=== PATIENT | male | born 1985 | race Two or more races ===

== ENCOUNTER 2020-09-14 15:12 | Inpatient (IN) | payer OTHER ==
[2020-09-14 17:12] VITALS: BMI 28.3
[2020-09-14] MEDS ORDERED: chlordiazePOXIDE HCL 25 MG CAPSULE PO PRN (17:54)
[2020-09-14] MEDS ORDERED: MAG HYDROX/AL HYDROX/SIMETH 30 ML UNIT-DOSE CUP PO PRN (17:54)
[2020-09-14] MEDS ORDERED: ONDANSETRON *ODT* 4 MG TABLET SL PRN (17:54)
[2020-09-14] MEDS ORDERED: MENTHOL/PHENOL 1 EACH UD MM PRN (17:54)
[2020-09-14] MEDS ORDERED: IBUPROFEN 400 MG TABLET (FP) PO PRN (17:54)
[2020-09-14] MEDS ORDERED: MAGNESIUM CITRATE 300 ML BOTTLE PO PRN (17:54)
[2020-09-14] MEDS ORDERED: MAGNESIUM HYDROX 2400MG/30ML ORAL SUSPENSION 30 ML CUP PO PRN (17:54)
[2020-09-14] MEDS ORDERED: ACETAMINOPHEN 325 MG TABLET (FP) PO PRN ×2 (17:54)
[2020-09-14] MEDS ORDERED: BISMUTH SUBSALICYLATE 524 MG/30 ML UD PO PRN (17:54)
[2020-09-14] MEDS ORDERED: NICOTINE POLACRILEX 2 MG GUM BUC PRN (17:54)
[2020-09-14] MEDS ORDERED: METHOCARBAMOL 500 MG TABLET PO PRN (17:54)
[2020-09-14] MEDS: chlordiazePOXIDE HCL 25 MG CAPSULE PO SCH (22:10)
[2020-09-14] MEDS: THIAMINE HCL 100 MG TABLET (FP) PO SCH (22:11)
[2020-09-14] MEDS: MELATONIN 5 MG TABLETS PO SCH (22:11)
[2020-09-15] MEDS: chlordiazePOXIDE HCL 25 MG CAPSULE PO SCH ×4 (06:43→22:48)
[2020-09-15] MEDS: PRENATAL VITAMINS W/ FOLIC ACID TABLET (FP) PO SCH (10:32)
[2020-09-15] MEDS: NICOTINE 14 MG/24 HOURS TOPICAL PATCH TD SCH (10:32)
[2020-09-15 10:41] LABS: POTASSIUM 3.5 mmol/L (3.5-5.1)
[2020-09-15 10:43] LABS: CALCIUM 8.7 mg/dL (8.5-10.1)
[2020-09-15 10:45] LABS: ALBUMIN 4.2 g/dl (3.4-5.0); BLOOD UREA NITROGEN 11.8 mg/dL (7-18); HEMATOCRIT 38.8 % (35.4-49); HEMOGLOBIN 13.8 GM/dL (11.7-16.9); MCH 36.5 pg (25.7-33.7); MCHC 35.5 g/dl (32.0-35.9); MEAN CELL VOLUME 102.6 fl (80-96); MEAN PLT VOLUME 7.7 fl (7.5-11.1); PLATELET COUNT 211 K/MM3 (134-434); RBC 3.78 M/mm3 (4.00-5.60); RDW 13.7 % (11.9-15.9); WHITE BLOOD COUNT 5.5 K/mm3 (4.0-10.0)
[2020-09-15 10:47] LABS: BILIRUBIN,TOTAL 0.5 mg/dL (0.2-1); CREATININE 0.7 mg/dL (0.55-1.3)
[2020-09-15 10:49] LABS: TOT PROT 7.3 g/dl (6.4-8.2)
[2020-09-15] MEDS ORDERED: amLODIPine BESYLATE 5 MG TABLET (FP) PO PRN (16:52)
[2020-09-15] MEDS ORDERED: amLODIPine BESYLATE 5 MG TABLET (FP) PO ONE (16:52)
[2020-09-15] MEDS: THIAMINE HCL 100 MG TABLET (FP) PO SCH (22:48)
[2020-09-15] MEDS: MELATONIN 5 MG TABLETS PO SCH (22:48)
[2020-09-16] MEDS: chlordiazePOXIDE HCL 25 MG CAPSULE PO SCH ×4 (05:41→22:29)
[2020-09-16] MEDS: PRENATAL VITAMINS W/ FOLIC ACID TABLET (FP) PO SCH (10:18)
[2020-09-16] MEDS: NICOTINE 14 MG/24 HOURS TOPICAL PATCH TD SCH (10:19)
[2020-09-16] MEDS: ARTIFICIAL TEARS (POLYVINYL ALCOHOL) OPTH DROPS OU SCH ×3 (13:31→22:30)
[2020-09-16] MEDS: THIAMINE HCL 100 MG TABLET (FP) PO SCH (22:28)
[2020-09-16] MEDS: MELATONIN 5 MG TABLETS PO SCH (22:28)
[2020-09-17] MEDS ORDERED: chlordiazePOXIDE HCL 10 MG CAPSULE PO PRN
[2020-09-17] MEDS: chlordiazePOXIDE HCL 10 MG CAPSULE PO SCH ×4 (05:41→22:16)
[2020-09-17] MEDS: PRENATAL VITAMINS W/ FOLIC ACID TABLET (FP) PO SCH (10:16)
[2020-09-17] MEDS: NICOTINE 14 MG/24 HOURS TOPICAL PATCH TD SCH (10:18)
[2020-09-17] MEDS: ARTIFICIAL TEARS (POLYVINYL ALCOHOL) OPTH DROPS OU SCH ×4 (10:19→22:17)
[2020-09-17] MEDS: THIAMINE HCL 100 MG TABLET (FP) PO SCH (22:16)
[2020-09-17] MEDS: MELATONIN 5 MG TABLETS PO SCH (22:17)
[2020-09-18] MEDS: chlordiazePOXIDE HCL 10 MG CAPSULE PO SCH ×2 (06:34→17:27)
[2020-09-18] MEDS: NICOTINE 14 MG/24 HOURS TOPICAL PATCH TD SCH (10:06)
[2020-09-18] MEDS: PRENATAL VITAMINS W/ FOLIC ACID TABLET (FP) PO SCH (10:06)
[2020-09-18] MEDS: ARTIFICIAL TEARS (POLYVINYL ALCOHOL) OPTH DROPS OU SCH ×4 (10:07→22:14)
[2020-09-18] MEDS: THIAMINE HCL 100 MG TABLET (FP) PO SCH (22:12)
[2020-09-18] MEDS: MELATONIN 5 MG TABLETS PO SCH (22:13)
[2020-09-19] MEDS ORDERED: chlordiazePOXIDE HCL 10 MG CAPSULE PO ONE (05:00)
[2020-09-19 08:52] VITALS: BP 124/89; PULSE 76; TEMP 96.9
[2020-09-19] MEDS: PRENATAL VITAMINS W/ FOLIC ACID TABLET (FP) PO SCH (09:44)
[2020-09-19] MEDS: ARTIFICIAL TEARS (POLYVINYL ALCOHOL) OPTH DROPS OU SCH (09:45)
[2020-09-19] MEDS: NICOTINE 14 MG/24 HOURS TOPICAL PATCH TD SCH (09:45)
== END 2020-09-19 11:25 | disposition other institution (70) | DRG 775 ==
LOC: YASAS 15:12 → Y3N 18:22
PROVIDERS: ADMIT Allergy & Immunology; ATTEND Allergy & Immunology
PROC: HZ2ZZZZ Detoxification Services for Substance Abuse Treatment (ICD-10-PCS; principal; 2020-09-14)
DX: F10.230 Alcohol dependence with withdrawal, uncomplicated (principal); F17.210 Nicotine dependence, cigarettes, uncomplicated; R03.0 Elevated blood-pressure reading, without diagnosis of hypertension; H57.9 Unspecified disorder of eye and adnexa; Z91.013 Allergy to seafood
CPT/HCPCS: 36415; 80053; 85027; 86780; 93005; 93010; C9803; U0003

== ENCOUNTER 2022-09-11 13:50 | Inpatient (IN) | payer OTHER ==
[2022-09-11 16:05] VITALS: BMI 26.9
[2022-09-11] MEDS ORDERED: IBUPROFEN 600 MG TABLET (FP) PO PRN (18:08)
[2022-09-11] MEDS ORDERED: ONDANSETRON *ODT* 4 MG TABLET SL PRN (18:08)
[2022-09-11] MEDS ORDERED: IBUPROFEN 400 MG TABLET (FP) PO PRN (18:08)
[2022-09-11] MEDS ORDERED: NALOXONE HCL (KLOXXADO) 8 MG SPRAY NS PRN (18:08)
[2022-09-11] MEDS ORDERED: MAGNESIUM HYDROX 2400MG/30ML ORAL SUSPENSION 30 ML CUP PO PRN (18:08)
[2022-09-11] MEDS ORDERED: BENZOCAINE/MENTHOL (CHLORASEPTIC ) LOZENGE MM PRN (18:08)
[2022-09-11] MEDS ORDERED: DICYCLOMINE HCL 10 MG CAPSULE PO PRN (18:08)
[2022-09-11] MEDS ORDERED: POLYETHYLENE GLYCOL (HEALTHYLAX) 3350 17 GM PACKET PO PRN (18:08)
[2022-09-11] MEDS ORDERED: MAG HYDROX/AL HYDROX/SIMETH 30 ML UNIT-DOSE CUP PO PRN (18:08)
[2022-09-11] MEDS ORDERED: ACETAMINOPHEN 325 MG TABLET (FP) PO PRN ×2 (18:08)
[2022-09-11] MEDS ORDERED: chlordiazePOXIDE HCL 25 MG CAPSULE PO ONE (18:25)
[2022-09-11] MEDS ORDERED: chlordiazePOXIDE HCL 25 MG CAPSULE ONE (18:34)
[2022-09-11] MEDS: NICOTINE 21 MG/24 HOURS TOPICAL PATCH TD SCH (19:19)
[2022-09-11] MEDS: PRENATAL VITAMINS W/ FOLIC ACID TABLET (FP) PO SCH (19:19)
[2022-09-11] MEDS: THIAMINE HCL 100 MG TABLET (FP) PO SCH (22:09)
[2022-09-11] MEDS: chlordiazePOXIDE HCL 25 MG CAPSULE PO SCH (22:09)
[2022-09-11] MEDS: MELATONIN 5 MG TABLETS PO SCH (22:09)
[2022-09-12] MEDS: chlordiazePOXIDE HCL 25 MG CAPSULE PO SCH ×4 (05:14→22:07)
[2022-09-12] MEDS: NICOTINE 21 MG/24 HOURS TOPICAL PATCH TD SCH (10:13)
[2022-09-12] MEDS: PRENATAL VITAMINS W/ FOLIC ACID TABLET (FP) PO SCH (10:13)
[2022-09-12] MEDS: LOPERAMIDE HCL 2 MG CAPSULE PO PRN (19:21)
[2022-09-12] MEDS: THIAMINE HCL 100 MG TABLET (FP) PO SCH (22:07)
[2022-09-12] MEDS: MELATONIN 5 MG TABLETS PO SCH (22:07)
[2022-09-12] MEDS: METHOCARBAMOL 500 MG TABLET PO PRN (22:07)
[2022-09-13] MEDS: chlordiazePOXIDE HCL 25 MG CAPSULE PO SCH ×4 (05:49→22:20)
[2022-09-13] MEDS: PRENATAL VITAMINS W/ FOLIC ACID TABLET (FP) PO SCH (10:43)
[2022-09-13] MEDS: NICOTINE 21 MG/24 HOURS TOPICAL PATCH TD SCH (10:43)
[2022-09-13] MEDS: METHOCARBAMOL 500 MG TABLET PO PRN ×2 (10:44→22:20)
[2022-09-13 11:30] LABS: HEMATOCRIT 36.5 % (35.4-49); HEMOGLOBIN 12.6 GM/dL (11.7-16.9); MCH 36.5 pg (25.7-33.7); MCHC 34.4 g/dl (32.0-35.9); MEAN PLT VOLUME 9.5 fl (7.5-11.1); PLATELET COUNT 71 10^3/uL (134-434); RBC 3.44 M/mm3 (4.00-5.60); RDW 14.6 % (11.9-15.9); WHITE BLOOD COUNT 3.7 K/mm3 (4.0-10.0)
[2022-09-13 12:00] LABS: ALBUMIN 3.3 g/dl (3.4-5.0); BLOOD UREA NITROGEN 4.5 mg/dL (7-18)
[2022-09-13 12:03] LABS: CREATININE 0.6 mg/dL (0.55-1.3)
[2022-09-13 12:04] LABS: BILIRUBIN,TOTAL 0.5 mg/dL (0.2-1); TOT PROT 6.4 g/dl (6.4-8.2)
[2022-09-13] MEDS ORDERED: POTASSIUM CHLORIDE ORAL LIQUID 20 MEQ/15 ML PO ONE ×3 (14:30→21:30)
[2022-09-13] MEDS: MELATONIN 5 MG TABLETS PO SCH (22:17)
[2022-09-13] MEDS: THIAMINE HCL 100 MG TABLET (FP) PO SCH (22:20)
[2022-09-14] MEDS ORDERED: chlordiazePOXIDE HCL 10 MG CAPSULE PO PRN
[2022-09-14] MEDS: chlordiazePOXIDE HCL 10 MG CAPSULE PO SCH ×4 (06:16→22:02)
[2022-09-14] MEDS: NICOTINE 21 MG/24 HOURS TOPICAL PATCH TD SCH (10:32)
[2022-09-14] MEDS: PRENATAL VITAMINS W/ FOLIC ACID TABLET (FP) PO SCH (10:32)
[2022-09-14] MEDS: BISMUTH SUBSALICYLATE 524 MG/30 ML PO PRN ×2 (10:39→22:04)
[2022-09-14] MEDS: MELATONIN 5 MG TABLETS PO SCH (22:02)
[2022-09-14] MEDS: THIAMINE HCL 100 MG TABLET (FP) PO SCH (22:02)
[2022-09-15] MEDS: chlordiazePOXIDE HCL 10 MG CAPSULE PO SCH ×2 (05:25→17:31)
[2022-09-15] MEDS: PRENATAL VITAMINS W/ FOLIC ACID TABLET (FP) PO SCH (10:06)
[2022-09-15] MEDS: NICOTINE 21 MG/24 HOURS TOPICAL PATCH TD SCH (10:06)
[2022-09-15] MEDS: LOPERAMIDE HCL 2 MG CAPSULE PO PRN (10:08)
[2022-09-15 12:07] LABS: HEMATOCRIT 37.4 % (35.4-49); HEMOGLOBIN 12.7 GM/dL (11.7-16.9); MCH 36.2 pg (25.7-33.7); MCHC 33.9 g/dl (32.0-35.9); MEAN CELL VOLUME 106.7 fl (80-96); PLATELET COUNT 110 10^3/uL (134-434); RBC 3.51 M/mm3 (4.00-5.60)
[2022-09-15] MEDS: NICOTINE 10 MG CARTRIDGE (INHALER) IH PRN ×2 (14:16→21:56)
[2022-09-15] MEDS: METHOCARBAMOL 500 MG TABLET PO PRN (17:33)
[2022-09-15] MEDS: BISMUTH SUBSALICYLATE 524 MG/30 ML PO PRN ×2 (17:33→22:05)
[2022-09-15] MEDS: MELATONIN 5 MG TABLETS PO SCH (22:00)
[2022-09-15] MEDS: THIAMINE HCL 100 MG TABLET (FP) PO SCH (22:00)
[2022-09-16] MEDS ORDERED: chlordiazePOXIDE HCL 10 MG CAPSULE PO ONE (06:00)
[2022-09-16 09:03] VITALS: TEMP 97.3
[2022-09-16] MEDS: PRENATAL VITAMINS W/ FOLIC ACID TABLET (FP) PO SCH (10:14)
[2022-09-16] MEDS: NICOTINE 21 MG/24 HOURS TOPICAL PATCH TD SCH (10:14)
[2022-09-16] MEDS: LOPERAMIDE HCL 2 MG CAPSULE PO PRN (10:58)
[2022-09-16 12:34] VITALS: BP 125/84; PULSE 85; RESP 19
== END 2022-09-16 12:53 | disposition other institution (70) | DRG 775 ==
LOC: YASAS 13:50 → Y3N 18:54
PROVIDERS: ADMIT Allergy & Immunology; ATTEND Surgery
PROC: HZ2ZZZZ Detoxification Services for Substance Abuse Treatment (ICD-10-PCS; principal; 2022-09-11)
DX: F10.230 Alcohol dependence with withdrawal, uncomplicated (principal); F17.210 Nicotine dependence, cigarettes, uncomplicated; F19.24 Other psychoactive substance dependence with psychoactive substance-induced mood disorder; F41.8 Other specified anxiety disorders; F32.A Depression, unspecified; D69.6 Thrombocytopenia, unspecified; D52.0 Dietary folate deficiency anemia; E87.6 Hypokalemia; R74.01 Elevation of levels of liver transaminase levels; R74.8 Abnormal levels of other serum enzymes
CPT/HCPCS: 36415; 80053; 84132; 84450; 84460; 85027; 86780; 87811; C9803-CS; U0003; U0005

== ENCOUNTER 2022-09-16 12:57 | Inpatient (IN) | payer OTHER ==
[2022-09-16] MEDS ORDERED: guaiFENesin 200 MG/10 ML 10 ML UNIT-DOSE CUPS PO PRN (14:28)
[2022-09-16] MEDS ORDERED: NICOTINE POLACRILEX 2 MG GUM BUC PRN (14:28)
[2022-09-16] MEDS ORDERED: ACETAMINOPHEN 325 MG TABLET (FP) PO PRN (14:28)
[2022-09-16] MEDS ORDERED: BENZOCAINE/MENTHOL (CHLORASEPTIC ) LOZENGE MM PRN (14:28)
[2022-09-16] MEDS ORDERED: LOPERAMIDE HCL 2 MG CAPSULE PO PRN (14:28)
[2022-09-16] MEDS ORDERED: MAG HYDROX/AL HYDROX/SIMETH 30 ML UNIT-DOSE CUP PO PRN (14:28)
[2022-09-16] MEDS ORDERED: NICOTINE 7 MG/24 HOURS TOPICAL PATCH TD PRN (14:28)
[2022-09-16] MEDS: NICOTINE 10 MG CARTRIDGE (INHALER) IH PRN ×2 (17:23→21:45)
[2022-09-16] MEDS: THIAMINE HCL 100 MG TABLET (FP) PO SCH (21:25)
[2022-09-16] MEDS: MELATONIN 5 MG TABLETS PO SCH (21:26)
[2022-09-17] MEDS: PRENATAL VITAMINS W/ FOLIC ACID TABLET (FP) PO SCH (09:51)
[2022-09-17] MEDS: hydrOXYzine PAMOATE 25 MG CAPSULE (FP) PO PRN (09:54)
[2022-09-17] MEDS: NICOTINE 10 MG CARTRIDGE (INHALER) IH PRN ×3 (10:17→19:48)
[2022-09-17 13:32] LABS: HIV INTERPRETATION NEGATIVE (NEGATIVE)
[2022-09-17] MEDS: THIAMINE HCL 100 MG TABLET (FP) PO SCH (21:41)
[2022-09-17] MEDS: MELATONIN 5 MG TABLETS PO SCH (21:41)
[2022-09-18] MEDS: PRENATAL VITAMINS W/ FOLIC ACID TABLET (FP) PO SCH (09:44)
[2022-09-18] MEDS: NICOTINE 10 MG CARTRIDGE (INHALER) IH PRN ×3 (09:44→21:40)
[2022-09-18] MEDS: MELATONIN 5 MG TABLETS PO SCH (21:39)
[2022-09-18] MEDS: THIAMINE HCL 100 MG TABLET (FP) PO SCH (21:39)
[2022-09-19] MEDS: PRENATAL VITAMINS W/ FOLIC ACID TABLET (FP) PO SCH (10:03)
[2022-09-19] MEDS: MAGNESIUM HYDROX 2400MG/30ML ORAL SUSPENSION 30 ML CUP PO PRN (10:05)
[2022-09-19] MEDS: NICOTINE 10 MG CARTRIDGE (INHALER) IH PRN ×3 (13:22→20:08)
[2022-09-19] MEDS: THIAMINE HCL 100 MG TABLET (FP) PO SCH (21:24)
[2022-09-19] MEDS: MELATONIN 5 MG TABLETS PO SCH (21:25)
[2022-09-19] MEDS: hydrOXYzine PAMOATE 25 MG CAPSULE (FP) PO PRN (21:25)
[2022-09-20] MEDS: PRENATAL VITAMINS W/ FOLIC ACID TABLET (FP) PO SCH (10:18)
[2022-09-20] MEDS: POLYETHYLENE GLYCOL (HEALTHYLAX) 3350 17 GM PACKET PO PRN (10:20)
[2022-09-20] MEDS: NICOTINE 10 MG CARTRIDGE (INHALER) IH PRN ×3 (10:21→19:30)
[2022-09-20] MEDS: MELATONIN 5 MG TABLETS PO SCH (21:21)
[2022-09-20] MEDS: THIAMINE HCL 100 MG TABLET (FP) PO SCH (21:21)
[2022-09-20] MEDS: hydrOXYzine PAMOATE 25 MG CAPSULE (FP) PO PRN (21:22)
[2022-09-20] MEDS: P-EPHED 60MG/TRIPROLIDI 2.5MG TABLET PO PRN (22:35)
[2022-09-21] MEDS: PRENATAL VITAMINS W/ FOLIC ACID TABLET (FP) PO SCH (10:07)
[2022-09-21] MEDS: NICOTINE 10 MG CARTRIDGE (INHALER) IH PRN ×2 (10:54→22:24)
[2022-09-21] MEDS: THIAMINE HCL 100 MG TABLET (FP) PO SCH (21:35)
[2022-09-21] MEDS: hydrOXYzine PAMOATE 25 MG CAPSULE (FP) PO PRN (21:36)
[2022-09-21] MEDS: MELATONIN 5 MG TABLETS PO SCH (21:36)
[2022-09-21] MEDS: MAGNESIUM HYDROX 2400MG/30ML ORAL SUSPENSION 30 ML CUP PO PRN (21:37)
[2022-09-21] MEDS: P-EPHED 60MG/TRIPROLIDI 2.5MG TABLET PO PRN (22:24)
[2022-09-22] MEDS: PRENATAL VITAMINS W/ FOLIC ACID TABLET (FP) PO SCH (10:17)
[2022-09-22] MEDS: P-EPHED 60MG/TRIPROLIDI 2.5MG TABLET PO PRN ×2 (10:18→21:44)
[2022-09-22] MEDS: NICOTINE 10 MG CARTRIDGE (INHALER) IH PRN (19:45)
[2022-09-22] MEDS: THIAMINE HCL 100 MG TABLET (FP) PO SCH (21:45)
[2022-09-22] MEDS: MELATONIN 5 MG TABLETS PO SCH (21:45)
[2022-09-22] MEDS: hydrOXYzine PAMOATE 25 MG CAPSULE (FP) PO PRN (21:46)
[2022-09-23] MEDS: PRENATAL VITAMINS W/ FOLIC ACID TABLET (FP) PO SCH (10:22)
[2022-09-23] MEDS: hydrOXYzine PAMOATE 25 MG CAPSULE (FP) PO PRN ×2 (10:23→21:35)
[2022-09-23] MEDS: POLYETHYLENE GLYCOL (HEALTHYLAX) 3350 17 GM PACKET PO PRN (10:24)
[2022-09-23] MEDS: THIAMINE HCL 100 MG TABLET (FP) PO SCH (21:32)
[2022-09-23] MEDS: P-EPHED 60MG/TRIPROLIDI 2.5MG TABLET PO PRN (21:34)
[2022-09-23] MEDS: MELATONIN 5 MG TABLETS PO SCH (21:35)
[2022-09-23] MEDS: NICOTINE 10 MG CARTRIDGE (INHALER) IH PRN (21:35)
[2022-09-24] MEDS: PRENATAL VITAMINS W/ FOLIC ACID TABLET (FP) PO SCH (10:20)
[2022-09-24] MEDS: hydrOXYzine PAMOATE 25 MG CAPSULE (FP) PO PRN ×2 (10:20→21:26)
[2022-09-24] MEDS: NICOTINE 10 MG CARTRIDGE (INHALER) IH PRN ×2 (10:22→21:27)
[2022-09-24 11:33] LABS: BLOOD UREA NITROGEN 15.1 mg/dL (7-18); CALCIUM 10.1 mg/dL (8.5-10.1)
[2022-09-24 11:36] LABS: CREATININE 0.7 mg/dL (0.55-1.3)
[2022-09-24 11:38] LABS: BILIRUBIN,TOTAL 0.4 mg/dL (0.2-1); TOT PROT 8.1 g/dl (6.4-8.2)
[2022-09-24 11:41] LABS: ALBUMIN 4.5 g/dl (3.4-5.0)
[2022-09-24] MEDS: THIAMINE HCL 100 MG TABLET (FP) PO SCH (21:24)
[2022-09-24] MEDS: P-EPHED 60MG/TRIPROLIDI 2.5MG TABLET PO PRN (21:25)
[2022-09-24] MEDS: MELATONIN 5 MG TABLETS PO SCH (21:43)
[2022-09-25] MEDS: PRENATAL VITAMINS W/ FOLIC ACID TABLET (FP) PO SCH (10:11)
[2022-09-25] MEDS: hydrOXYzine PAMOATE 25 MG CAPSULE (FP) PO PRN ×2 (10:11→21:33)
[2022-09-25] MEDS: P-EPHED 60MG/TRIPROLIDI 2.5MG TABLET PO PRN ×2 (13:40→21:34)
[2022-09-25] MEDS: NICOTINE 10 MG CARTRIDGE (INHALER) IH PRN (17:08)
[2022-09-25] MEDS: THIAMINE HCL 100 MG TABLET (FP) PO SCH (21:32)
[2022-09-25] MEDS: MELATONIN 5 MG TABLETS PO SCH (21:33)
[2022-09-26] MEDS: PRENATAL VITAMINS W/ FOLIC ACID TABLET (FP) PO SCH (10:11)
[2022-09-26] MEDS: P-EPHED 60MG/TRIPROLIDI 2.5MG TABLET PO PRN ×2 (10:12→21:48)
[2022-09-26] MEDS: MAGNESIUM HYDROX 2400MG/30ML ORAL SUSPENSION 30 ML CUP PO PRN (10:13)
[2022-09-26] MEDS: NICOTINE 10 MG CARTRIDGE (INHALER) IH PRN (19:21)
[2022-09-26] MEDS: THIAMINE HCL 100 MG TABLET (FP) PO SCH (21:45)
[2022-09-26] MEDS: MELATONIN 5 MG TABLETS PO SCH (21:45)
[2022-09-26] MEDS: POLYETHYLENE GLYCOL (HEALTHYLAX) 3350 17 GM PACKET PO PRN (21:50)
[2022-09-27] MEDS: PRENATAL VITAMINS W/ FOLIC ACID TABLET (FP) PO SCH (09:57)
[2022-09-27] MEDS: NICOTINE 10 MG CARTRIDGE (INHALER) IH PRN (20:39)
[2022-09-27] MEDS: MELATONIN 5 MG TABLETS PO SCH (21:37)
[2022-09-27] MEDS: THIAMINE HCL 100 MG TABLET (FP) PO SCH (21:37)
[2022-09-27] MEDS: IBUPROFEN 400 MG TABLET (FP) PO PRN (22:56)
[2022-09-28] MEDS: PRENATAL VITAMINS W/ FOLIC ACID TABLET (FP) PO SCH (10:18)
[2022-09-28] MEDS: NICOTINE 10 MG CARTRIDGE (INHALER) IH PRN (10:47)
[2022-09-28 12:18] LABS: ALBUMIN 4.3 g/dl (3.4-5.0); BLOOD UREA NITROGEN 10.8 mg/dL (7-18); CALCIUM 9.7 mg/dL (8.5-10.1)
[2022-09-28 12:21] LABS: CREATININE 0.7 mg/dL (0.55-1.3)
[2022-09-28 12:23] LABS: BILIRUBIN,TOTAL 0.3 mg/dL (0.2-1); TOT PROT 7.8 g/dl (6.4-8.2)
[2022-09-28] MEDS: THIAMINE HCL 100 MG TABLET (FP) PO SCH (21:32)
[2022-09-28] MEDS: MELATONIN 5 MG TABLETS PO SCH (21:32)
[2022-09-28] MEDS: hydrOXYzine PAMOATE 25 MG CAPSULE (FP) PO PRN (21:32)
[2022-09-29] MEDS: PRENATAL VITAMINS W/ FOLIC ACID TABLET (FP) PO SCH (10:17)
[2022-09-29] MEDS: hydrOXYzine PAMOATE 25 MG CAPSULE (FP) PO PRN ×2 (10:18→21:20)
[2022-09-29] MEDS: NICOTINE 10 MG CARTRIDGE (INHALER) IH PRN (17:59)
[2022-09-29] MEDS: MELATONIN 5 MG TABLETS PO SCH (21:19)
[2022-09-29] MEDS: THIAMINE HCL 100 MG TABLET (FP) PO SCH (21:19)
[2022-09-30] MEDS: PRENATAL VITAMINS W/ FOLIC ACID TABLET (FP) PO SCH (09:57)
[2022-09-30] MEDS: NICOTINE 10 MG CARTRIDGE (INHALER) IH PRN ×3 (09:57→22:16)
[2022-09-30] MEDS: hydrOXYzine PAMOATE 25 MG CAPSULE (FP) PO PRN (21:11)
[2022-09-30] MEDS: MELATONIN 5 MG TABLETS PO SCH (21:11)
[2022-09-30] MEDS: THIAMINE HCL 100 MG TABLET (FP) PO SCH (21:11)
[2022-10-01] MEDS: NICOTINE 10 MG CARTRIDGE (INHALER) IH PRN (06:45)
[2022-10-01] MEDS: PRENATAL VITAMINS W/ FOLIC ACID TABLET (FP) PO SCH (09:42)
[2022-10-01] MEDS: THIAMINE HCL 100 MG TABLET (FP) PO SCH (21:33)
[2022-10-01] MEDS: MELATONIN 5 MG TABLETS PO SCH (21:33)
[2022-10-01] MEDS: hydrOXYzine PAMOATE 25 MG CAPSULE (FP) PO PRN (21:33)
[2022-10-02] MEDS: PRENATAL VITAMINS W/ FOLIC ACID TABLET (FP) PO SCH (10:11)
[2022-10-02] MEDS: NICOTINE 10 MG CARTRIDGE (INHALER) IH PRN ×3 (10:12→21:38)
[2022-10-02] MEDS: THIAMINE HCL 100 MG TABLET (FP) PO SCH (21:35)
[2022-10-02] MEDS: MELATONIN 5 MG TABLETS PO SCH (21:35)
[2022-10-02] MEDS: hydrOXYzine PAMOATE 25 MG CAPSULE (FP) PO PRN (21:35)
[2022-10-02] MEDS: IBUPROFEN 400 MG TABLET (FP) PO PRN (21:37)
[2022-10-03] MEDS: PRENATAL VITAMINS W/ FOLIC ACID TABLET (FP) PO SCH (10:00)
[2022-10-03] MEDS: hydrOXYzine PAMOATE 25 MG CAPSULE (FP) PO PRN (10:02)
[2022-10-03] MEDS: LIDOCAINE 5% TOPICAL PATCH TP SCH (12:33)
[2022-10-03] MEDS: MELATONIN 5 MG TABLETS PO SCH (21:33)
[2022-10-03] MEDS: THIAMINE HCL 100 MG TABLET (FP) PO SCH (21:33)
[2022-10-03] MEDS: NICOTINE 10 MG CARTRIDGE (INHALER) IH PRN (21:34)
[2022-10-03] MEDS: LIDOCAINE PATCH REMOVAL MC SCH (22:28)
[2022-10-04] MEDS: LIDOCAINE 5% TOPICAL PATCH TP SCH (10:01)
[2022-10-04] MEDS: PRENATAL VITAMINS W/ FOLIC ACID TABLET (FP) PO SCH (10:02)
[2022-10-04] MEDS: hydrOXYzine PAMOATE 25 MG CAPSULE (FP) PO PRN ×2 (10:03→21:51)
[2022-10-04] MEDS: LIDOCAINE PATCH REMOVAL MC SCH (21:50)
[2022-10-04] MEDS: MELATONIN 5 MG TABLETS PO SCH (21:50)
[2022-10-04] MEDS: THIAMINE HCL 100 MG TABLET (FP) PO SCH (21:50)
[2022-10-04] MEDS: IBUPROFEN 400 MG TABLET (FP) PO PRN (21:52)
[2022-10-05 08:12] VITALS: RESP 18
[2022-10-05] MEDS: NICOTINE 10 MG CARTRIDGE (INHALER) IH PRN ×2 (10:21→21:43)
[2022-10-05] MEDS: PRENATAL VITAMINS W/ FOLIC ACID TABLET (FP) PO SCH (10:21)
[2022-10-05] MEDS: LIDOCAINE 5% TOPICAL PATCH TP SCH (10:21)
[2022-10-05] MEDS: THIAMINE HCL 100 MG TABLET (FP) PO SCH (21:40)
[2022-10-05] MEDS: MELATONIN 5 MG TABLETS PO SCH (21:40)
[2022-10-05] MEDS: LIDOCAINE PATCH REMOVAL MC SCH (21:41)
[2022-10-05] MEDS: P-EPHED 60MG/TRIPROLIDI 2.5MG TABLET PO PRN (21:42)
[2022-10-06] MEDS: LIDOCAINE 5% TOPICAL PATCH TP SCH (10:11)
[2022-10-06] MEDS: PRENATAL VITAMINS W/ FOLIC ACID TABLET (FP) PO SCH (10:11)
[2022-10-06] MEDS ORDERED: COLLOIDAL OATMEAL 1 BAR EACH TP PRN (11:36)
[2022-10-06] MEDS: HYDROCORTISONE 1% TOPICAL CREAM 30 GM TUBE TP SCH ×2 (12:33→21:35)
[2022-10-06] MEDS: THIAMINE HCL 100 MG TABLET (FP) PO SCH (21:32)
[2022-10-06] MEDS: hydrOXYzine PAMOATE 25 MG CAPSULE (FP) PO PRN (21:32)
[2022-10-06] MEDS: MELATONIN 5 MG TABLETS PO SCH (21:32)
[2022-10-06] MEDS: P-EPHED 60MG/TRIPROLIDI 2.5MG TABLET PO PRN (21:34)
[2022-10-06] MEDS: LIDOCAINE PATCH REMOVAL MC SCH (21:39)
[2022-10-07 06:56] VITALS: BP 135/82; PULSE 85; TEMP 97.6
[2022-10-07] MEDS: PRENATAL VITAMINS W/ FOLIC ACID TABLET (FP) PO SCH (09:32)
[2022-10-07] MEDS: LIDOCAINE 5% TOPICAL PATCH TP SCH (09:32)
[2022-10-07] MEDS: IBUPROFEN 400 MG TABLET (FP) PO PRN (09:32)
[2022-10-07] MEDS: HYDROCORTISONE 1% TOPICAL CREAM 30 GM TUBE TP SCH (09:34)
== END 2022-10-07 10:30 | disposition home or self-care (01) | DRG 772 ==
LOC: YASAS 12:57 → Y5N 12:58
PROVIDERS: ADMIT Allergy & Immunology; ATTEND Psychiatry & Neurology Pain Medicine
PROC: HZ42ZZZ Group Counseling for Substance Abuse Treatment, Cognitive-Behavioral (ICD-10-PCS; principal; 2022-09-16)
DX: F10.20 Alcohol dependence, uncomplicated (principal); F17.210 Nicotine dependence, cigarettes, uncomplicated; F19.24 Other psychoactive substance dependence with psychoactive substance-induced mood disorder; F41.8 Other specified anxiety disorders; D52.0 Dietary folate deficiency anemia; R21 Rash and other nonspecific skin eruption; R79.89 Other specified abnormal findings of blood chemistry; R94.5 Abnormal results of liver function studies
CPT/HCPCS: 36415; 71046-TC-FY; 80053; 82140; 82607; 82746; 86803; 87389

== ENCOUNTER 2023-03-06 03:31 | Inpatient (IN) | payer OTHER ==
[2023-03-06 01:12] VITALS: BMI 27.2
[~2023-03-06 03:31] MED LIST: ACETAMINOPHEN 325 MG TABLET (FP) PO PRN; BENZOCAINE/MENTHOL (CHLORASEPTIC ) LOZENGE MM PRN; BENZONATATE 200 MG CAPSULE PO PRN; BISMUTH SUBSALICYLATE 524 MG/30 ML PO PRN; DICYCLOMINE HCL 10 MG CAPSULE PO PRN; IBUPROFEN 400 MG TABLET (FP) PO PRN; IBUPROFEN 600 MG TABLET (FP) PO PRN; LOPERAMIDE HCL 2 MG CAPSULE PO PRN; MAG HYDROX/AL HYDROX/SIMETH 30 ML UNIT-DOSE CUP PO PRN; MAGNESIUM HYDROX 2400MG/30ML ORAL SUSPENSION 30 ML CUP PO PRN; NALOXONE HCL (KLOXXADO) 8 MG SPRAY NS PRN; NALOXONE HCL 0.4 MG/ML VIAL IM PRN; NICOTINE 10 MG CARTRIDGE (INHALER) IH PRN; NICOTINE POLACRILEX 2 MG GUM BUC PRN; ONDANSETRON *ODT* 4 MG TABLET SL PRN; POLYETHYLENE GLYCOL (HEALTHYLAX) 3350 17 GM PACKET PO PRN; chlordiazePOXIDE HCL 25 MG CAPSULE PO PRN; guaiFENesin 600 MG TABLET.ER (FP) PO PRN; hydrOXYzine PAMOATE 25 MG CAPSULE (FP) PO PRN
[2023-03-06] MEDS: chlordiazePOXIDE HCL 25 MG CAPSULE PO SCH ×4 (04:39→22:06)
[2023-03-06] MEDS: CEPHALEXIN MONOHYDRATE 500 MG CAPSULE (UD) PO SCH ×3 (06:05→17:44)
[2023-03-06] MEDS ORDERED: NICOTINE 14 MG/24 HOURS TOPICAL PATCH TD SCH (10:00)
[2023-03-06] MEDS: NICOTINE 14 MG/24 HOURS TOPICAL PATCH TD SCH (10:27)
[2023-03-06] MEDS: PRENATAL VITAMINS W/ FOLIC ACID TABLET (FP) PO SCH (10:27)
[2023-03-06 10:40] LABS: HEMATOCRIT 38.6 % (35.4-49); MCH 34.2 pg (25.7-33.7); MCHC 33.7 g/dl (32.0-35.9); MEAN CELL VOLUME 101.6 fl (80-96); MEAN PLT VOLUME 8.8 fl (7.5-11.1); PLATELET COUNT 72 10^3/uL (134-434); WHITE BLOOD COUNT 3.8 K/mm3 (4.0-10.0)
[2023-03-06 10:48] LABS: POTASSIUM 3.7 mmol/L (3.5-5.1)
[2023-03-06 11:02] LABS: BLOOD UREA NITROGEN 5.2 mg/dL (7-18); CALCIUM 9.5 mg/dL (8.5-10.1)
[2023-03-06 11:03] LABS: ALBUMIN 3.9 g/dl (3.4-5.0)
[2023-03-06 11:05] LABS: CREATININE 0.7 mg/dL (0.55-1.3)
[2023-03-06 11:07] LABS: BILIRUBIN,TOTAL 1.7 mg/dL (0.2-1); TOT PROT 7.2 g/dl (6.4-8.2)
[2023-03-06] MEDS: THIAMINE HCL 100 MG TABLET (FP) PO SCH (22:06)
[2023-03-06] MEDS: MELATONIN 5 MG TABLETS PO SCH (22:06)
[2023-03-07] MEDS: CEPHALEXIN MONOHYDRATE 500 MG CAPSULE (UD) PO SCH ×4 (00:32→17:10)
[2023-03-07] MEDS: chlordiazePOXIDE HCL 25 MG CAPSULE PO SCH ×2 (05:09→10:04)
[2023-03-07] MEDS: NICOTINE 14 MG/24 HOURS TOPICAL PATCH TD SCH (10:02)
[2023-03-07] MEDS: PRENATAL VITAMINS W/ FOLIC ACID TABLET (FP) PO SCH (10:02)
[2023-03-07] MEDS ORDERED: LORazepam 1 MG TABLET PO PRN (14:58)
[2023-03-07] MEDS: LORazepam 2 MG TABLET PO SCH ×2 (17:10→22:02)
[2023-03-07] MEDS: THIAMINE HCL 100 MG TABLET (FP) PO SCH (22:02)
[2023-03-07] MEDS: MELATONIN 5 MG TABLETS PO SCH (22:02)
[2023-03-08] MEDS ORDERED: chlordiazePOXIDE HCL 10 MG CAPSULE PO PRN
[2023-03-08] MEDS: CEPHALEXIN MONOHYDRATE 500 MG CAPSULE (UD) PO SCH ×5 (00:27→23:04)
[2023-03-08] MEDS ORDERED: chlordiazePOXIDE HCL 10 MG CAPSULE PO SCH (05:00)
[2023-03-08] MEDS: LORazepam 1 MG TABLET PO SCH ×4 (05:17→22:32)
[2023-03-08] MEDS: PRENATAL VITAMINS W/ FOLIC ACID TABLET (FP) PO SCH (10:05)
[2023-03-08] MEDS: NICOTINE 14 MG/24 HOURS TOPICAL PATCH TD SCH (10:58)
[2023-03-08] MEDS: THIAMINE HCL 100 MG TABLET (FP) PO SCH (22:31)
[2023-03-08] MEDS: MELATONIN 5 MG TABLETS PO SCH (22:32)
[2023-03-09] MEDS ORDERED: LORazepam 0.5 MG TABLET PO PRN
[2023-03-09] MEDS ORDERED: chlordiazePOXIDE HCL 10 MG CAPSULE PO SCH (05:00)
[2023-03-09] MEDS: LORazepam 0.5 MG TABLET PO SCH ×4 (05:19→22:38)
[2023-03-09] MEDS: CEPHALEXIN MONOHYDRATE 500 MG CAPSULE (UD) PO SCH ×4 (05:19→23:00)
[2023-03-09] MEDS: NICOTINE 14 MG/24 HOURS TOPICAL PATCH TD SCH (10:47)
[2023-03-09] MEDS: PRENATAL VITAMINS W/ FOLIC ACID TABLET (FP) PO SCH (10:47)
[2023-03-09 13:04] VITALS: RESP 18
[2023-03-09] MEDS: THIAMINE HCL 100 MG TABLET (FP) PO SCH (22:38)
[2023-03-09] MEDS: MELATONIN 5 MG TABLETS PO SCH (22:41)
[2023-03-10] MEDS ORDERED: LORazepam 0.5 MG TABLET PO ONE (05:00)
[2023-03-10] MEDS ORDERED: chlordiazePOXIDE HCL 10 MG CAPSULE PO ONE (05:00)
[2023-03-10] MEDS: CEPHALEXIN MONOHYDRATE 500 MG CAPSULE (UD) PO SCH ×2 (05:41→11:48)
[2023-03-10 09:12] VITALS: BP 143/83; PULSE 93; TEMP 98.5
[2023-03-10] MEDS: NICOTINE 14 MG/24 HOURS TOPICAL PATCH TD SCH (10:37)
[2023-03-10] MEDS: PRENATAL VITAMINS W/ FOLIC ACID TABLET (FP) PO SCH (10:37)
== END 2023-03-10 13:40 | disposition other institution (70) | DRG 775 ==
LOC: YASAS 03:31 → Y6N 03:34
PROVIDERS: ADMIT Allergy & Immunology; ATTEND Surgery
PROC: HZ2ZZZZ Detoxification Services for Substance Abuse Treatment (ICD-10-PCS; principal; 2023-03-06)
DX: F10.230 Alcohol dependence with withdrawal, uncomplicated (principal); F12.20 Cannabis dependence, uncomplicated; F17.210 Nicotine dependence, cigarettes, uncomplicated; F19.24 Other psychoactive substance dependence with psychoactive substance-induced mood disorder; L03.115 Cellulitis of right lower limb; L03.116 Cellulitis of left lower limb; R94.31 Abnormal electrocardiogram [ECG] [EKG]; R74.8 Abnormal levels of other serum enzymes; R74.01 Elevation of levels of liver transaminase levels; Z56.0 Unemployment, unspecified; Z59.00 Homelessness unspecified
CPT/HCPCS: 36415; 80053; 82247; 84450; 85027; 86780; 87635; 93005; 93010

== ENCOUNTER 2023-11-23 13:14 | Inpatient (IN) | payer OTHER ==
[2023-11-23 13:45] VITALS: BMI 26.2
[2023-11-23] MEDS ORDERED: ONDANSETRON *ODT* 4 MG TABLET SL PRN (14:22)
[2023-11-23] MEDS ORDERED: BISMUTH SUBSALICYLATE 262 MG/15 ML BTL PO PRN (14:22)
[2023-11-23] MEDS ORDERED: NALOXONE HCL 0.4 MG/ML VIAL IM PRN (14:22)
[2023-11-23] MEDS ORDERED: BENZONATATE 200 MG CAPSULE PO PRN (14:22)
[2023-11-23] MEDS ORDERED: NALOXONE HCL (KLOXXADO) 8 MG SPRAY NS PRN (14:22)
[2023-11-23] MEDS ORDERED: IBUPROFEN 600 MG TABLET (FP) PO PRN (14:22)
[2023-11-23] MEDS ORDERED: guaiFENesin 600 MG TABLET.ER (FP) PO PRN (14:22)
[2023-11-23] MEDS ORDERED: BENZOCAINE/MENTHOL (CHLORASEPTIC ) LOZENGE MM PRN (14:22)
[2023-11-23] MEDS ORDERED: ACETAMINOPHEN 325 MG TABLET (FP) PO PRN (14:22)
[2023-11-23] MEDS ORDERED: LORazepam 1 MG TABLET PO PRN (14:22)
[2023-11-23] MEDS ORDERED: POLYETHYLENE GLYCOL (HEALTHYLAX) 3350 17 GM PACKET PO PRN (14:22)
[2023-11-23] MEDS ORDERED: MAGNESIUM HYDROX 2400MG/30ML ORAL SUSPENSION 30 ML CUP PO PRN (14:22)
[2023-11-23] MEDS ORDERED: DICYCLOMINE HCL 10 MG CAPSULE PO PRN (14:22)
[2023-11-23] MEDS ORDERED: MAG HYDROX/AL HYDROX/SIMETH 30 ML UNIT-DOSE CUP PO PRN (14:22)
[2023-11-23] MEDS ORDERED: PRENATAL VITAMINS W/ FOLIC ACID TABLET (FP) PO ONE (15:06)
[2023-11-23] MEDS ORDERED: LORazepam 2 MG TABLET ONE (15:06)
[2023-11-23] MEDS: LORazepam 2 MG TABLET PO ONE (15:14)
[2023-11-23] MEDS: PRENATAL VITAMINS W/ FOLIC ACID TABLET (FP) PO SCH (15:15)
[2023-11-23] MEDS: LORazepam 2 MG TABLET PO SCH (17:32)
[2023-11-23] MEDS: VITAMINS A AND D TOPICAL OINTMENT TP SCH (17:52)
[2023-11-23] MEDS: THIAMINE HCL 100 MG TABLET (FP) PO SCH (22:11)
[2023-11-23] MEDS: MELATONIN 5 MG TABLETS PO SCH (22:11)
[2023-11-23] MEDS: METHOCARBAMOL 500 MG TABLET PO PRN (22:11)
[2023-11-24 09:09] LABS: CHLORIDE 105 mmol/L (98-107); HEMATOCRIT 37.9 % (35.4-49); MCH 36.2 pg (25.7-33.7); MCHC 34.2 g/dl (32.0-35.9); MEAN CELL VOLUME 105.8 fl (80-96); MEAN PLT VOLUME 7.9 fl (7.5-11.1); PLATELET COUNT 188 10^3/uL (134-434); POTASSIUM 3.1 mmol/L (3.5-5.1); RBC 3.58 M/mm3 (4.00-5.60); RDW 15.5 % (11.9-15.9); SODIUM 140 mmol/L (136-145); WHITE BLOOD COUNT 4.4 K/mm3 (4.0-10.0)
[2023-11-24 09:20] LABS: ALBUMIN 3.3 g/dl (3.4-5.0); ANION GAP 11 mmol/L (4-13); BLOOD UREA NITROGEN 7.6 mg/dL (7-18); CALCIUM 8.9 mg/dL (8.5-10.1); CO2 24 mmol/L (21-32); GLUCOSE,RANDOM 156 mg/dL (74-106)
[2023-11-24 09:22] LABS: CREATININE 0.8 mg/dL (0.55-1.3); SGOT/AST 39 U/L (15-37); SGPT/ALT 45 U/L (13-61)
[2023-11-24 09:23] LABS: BILIRUBIN,TOTAL 0.9 mg/dL (0.2-1)
[2023-11-24 09:24] LABS: TOT PROT 6.8 g/dl (6.4-8.2)
[2023-11-24 09:25] LABS: ALK PHOS 83 U/L (45-117)
[2023-11-24] MEDS: POTASSIUM CHLORIDE ORAL LIQUID 20 MEQ/15 ML PO ONE (11:08)
[2023-11-24] MEDS: POTASSIUM CHLORIDE ORAL LIQUID 20 MEQ/15 ML PO SCH (22:26)
[2023-11-24] MEDS: IBUPROFEN 400 MG TABLET (FP) PO PRN (22:29)
[2023-11-25] MEDS: LORazepam 1 MG TABLET PO SCH (05:33)
[2023-11-25] MEDS: LACTULOSE 20 GM/30 ML UDC (FOR ORAL USE ONLY) PO SCH (10:12)
[2023-11-25] MEDS: hydrOXYzine PAMOATE 25 MG CAPSULE (FP) PO PRN (22:10)
[2023-11-26] MEDS ORDERED: LORazepam 0.5 MG TABLET PO PRN
[2023-11-26] MEDS: LORazepam 0.5 MG TABLET PO SCH (05:35)
[2023-11-26 21:52] VITALS: RESP 18
[2023-11-27] MEDS: LORazepam 0.5 MG TABLET PO ONE (05:36)
[2023-11-27 06:30] VITALS: TEMP 97.3
[2023-11-27 10:14] VITALS: BP 134/92; PULSE 70
[2023-11-27] MEDS: LOPERAMIDE HCL 2 MG CAPSULE PO PRN (10:54)
== END 2023-11-27 10:45 | disposition home or self-care (01) | DRG 775 ==
LOC: YASAS 13:14 → Y6N 14:46
PROVIDERS: ADMIT Allergy & Immunology; ATTEND Surgery
PROC: HZ2ZZZZ Detoxification Services for Substance Abuse Treatment (ICD-10-PCS; principal; 2023-11-23)
DX: F10.230 Alcohol dependence with withdrawal, uncomplicated (principal); F12.20 Cannabis dependence, uncomplicated; F17.210 Nicotine dependence, cigarettes, uncomplicated; F19.24 Other psychoactive substance dependence with psychoactive substance-induced mood disorder; F41.8 Other specified anxiety disorders; D52.0 Dietary folate deficiency anemia; E72.20 Disorder of urea cycle metabolism, unspecified; E87.6 Hypokalemia; R74.01 Elevation of levels of liver transaminase levels; R73.9 Hyperglycemia, unspecified; Z86.69 Personal history of other diseases of the nervous system and sense organs; Z86.11 Personal history of tuberculosis
CPT/HCPCS: 36415; 71046-TC-FY; 80053; 80307; 82140; 84132; 85027; 86480; 86780; 93005; 93010